=== PATIENT | male | born 1965 | race Caucasian/White ===

== ENCOUNTER 2021-03-17 11:59 | Emergency (ER) | payer BC, SELFPAY ==
[2021-03-17 12:56] LABS: Absolute Lymphocytes (CBC) 0.5 K/uL (0.7-4.9); Basophils % 0.2 % (0-1.3); Hematocrit 42.7 % (39.6-49.0); Lymphocytes % 4.9 % (15.3-44.8); MPV 8.8 fL (7.6-11.3); RBC Red Blood Cell Count 4.98 M/uL (4.33-5.43)
[2021-03-17 13:15] LABS: Protime INR 1.52
[2021-03-17] MEDS ORDERED: dexAMETHasone 10 MG/ML VIAL ONE (13:22)
[2021-03-17] MEDS ORDERED: ACETAMINOPHEN 500 MG TAB ONE (13:22)
--- NOTE | 2021-03-17 13:33 | RAD REPORT ---
EXAM DESCRIPTION: RAD - Chest Single View - 03/17/2021 1:27 pm CLINICAL HISTORY: SOB Chest pain. COMPARISON: No comparisons FINDINGS: Portable technique limits examination quality. The lungs are grossly clear. The heart is normal in size. No displaced fractures. IMPRESSION: No acute intrathoracic process suspected.
[2021-03-17 13:36] LABS: Blood Morphology Comment NOT SEEN (NOT SEEN); Platelet Estimate ADEQ
[2021-03-17 13:58] LABS: Albumin 3.5 g/dL (3.4-5.0); Bilirubin Direct 0.2 mg/dL (0-0.2); Bilirubin Total 0.6 mg/dL (0.2-1.0); Ferritin 174.7 ng/mL (26-388); Potassium 3.3 mmol/L (3.5-5.1); Protein, Total 7.5 g/dL (6.4-8.2); Troponin (Emerg Dept Use Only) 0.02 ng/mL (0.0-0.045)
--- NOTE | 2021-03-17 14:08 | RAD REPORT ---
EXAM DESCRIPTION: CT - Chest For Pe Angio - 03/17/2021 1:57 pm CLINICAL HISTORY: Chest pain. elevated d-dimer COMPARISON: No comparisons TECHNIQUE: CT angiogram of the pulmonary arteries was performed with MIP. All CT scans are performed using dose optimization technique as appropriate and may include automated exposure control or mA/KV adjustment according to patient size. FINDINGS: No evidence of pulmonary thromboembolism. No acute aortic finding demonstrated. Bilateral interstitial lung opacities are present suspicious for viral infection or bronchitis. No significant pericardial or pleural fluid. No concerning bony finding. IMPRESSION: No evidence of pulmonary thromboembolism. Mild bilateral interstitial lung opacities suspicious for viral infection or bronchitis.
--- NOTE | 2021-03-17 15:09 | ER ---
Nurse's Notes [facility] Name: Christopher Perez III Age: 56 yrs Sex: Male : 1965 Arrival Date: 03/17/2021 Time: 12:04 Bed 30 Private MD: Diagnosis: Coronavirus infection, unspecified Presentation: 03/17 12:07 Chief complaint: Patient states: fever Tmax 103.1, sinus infection/pressure, nose sv "blue" started 03/09/21. Coronavirus screen: Client denies travel out of the [place] in the last 14 days. Client presents with at least one sign or symptom that may indicate coronavirus-19. Standard/surgical mask placed on the client. Provider contacted for isolation considerations. Ebola Screen: No symptoms or risks identified at this time. Risk Assessment: Do you want to hurt yourself or someone else? Patient reports no desire to harm self or others. Onset of symptoms was March 09, 2021. Care prior to arrival: Medication(s) given: Tylenol, taken 1.5 hours ago. 12:07 Method Of Arrival: Wheelchair sv 12:07 Acuity: ANIVAL 2 sv 12:09 Initial Sepsis Screen: Does the patient meet any 2 criteria? No. Patient's initial sv sepsis screen is negative. Does the patient have a suspected source of infection? No. Patient's initial sepsis screen is negative. Historical: - Allergies: 12:09 Codeine; sv 12:09 hydrocodone; sv - PMHx: 12:09 None; sv - PSHx: 12:09 Knee surgery; Toe amputation; wrist; left eye; Hernia repair; sv - Immunization history:: Adult Immunizations up to date. - Social history:: Smoking status: Patient denies any tobacco usage or history of. Screenin:15 Abuse screen: Denies threats or abuse. Nutritional screening: No deficits noted. kg Tuberculosis screening: No symptoms or risk factors identified. Fall Risk None identified. No fall in past 12 months (0 pts). No secondary diagnosis (0 pts). IV access (20 points). Ambulatory Aid- None/Bed Rest/Nurse Assist (0 pts). Gait- Weak (10 pts.). Mental Status- Oriented to own ability (0 pts). Total Taylor Fall Scale indicates No Risk (0-24 pts). Assessment: 13:12 General: Appears in no apparent distress. Behavior is calm, cooperative, appropriate kg for age, quiet. Pain: Complains of pain in back and abdomen Pain radiates to head, neck, chest, abdomen, pelvis, right arm, right hand, left arm, left hand, right leg, right foot, left leg, left foot, back of head, back of neck, back of left arm, back of right arm, posterior chest, buttocks, back of left leg, back of right leg, left heel, right heel and back Generalized pain Pain currently is 4 out of 10 on a pain scale. at worst was 6 out of 10 on a pain scale. level that patient reports is acceptable is 3 out of 10 on a pain scale. Neuro: No deficits noted. Level of Consciousness is awake, alert, obeys commands, Oriented to person, place, time, situation. Cardiovascular: No deficits noted. Heart tones S1 S2 Capillary refill is brisk Patient's skin is warm and dry. dusky color skin. Respiratory: No deficits noted. Reports shortness of breath at rest on exertion Airway is patent Respiratory effort is even, Breath sounds are diminished bilaterally. GI: No deficits noted. : No deficits noted. EENT: No deficits noted. Derm: No deficits noted. Derm: Skin is dusky, Skin temperature is warm. Musculoskeletal:. Vital Signs: 12:09 BP 110 / 69; Pulse 108; Resp 20; Temp 100.7(O); Pulse Ox 100% on R/A; Weight 136.08 kg; sv Height 6 ft. 0 in. (182.88 cm); 13:05 BP 97 / 61 LA Supine (auto/lg); Pulse 90; Resp 18; Pulse Ox 95% on R/A; jp3 13:30 BP 97 / 61; Pulse 73; Resp 20; Pulse Ox 96% on R/A; Pain 4/10; kg 14:30 BP 107 / 65; Pulse 72; Resp 16; Temp 98.6(O); Pulse Ox 98% on R/A; kg 15:31 BP 103 / 50; Pulse 61; Resp 16; Pulse Ox 99% on R/A; kg 12:09 Body Mass Index 40.69 (136.08 kg, 182.88 cm) sv ED Course: 12:04 Patient arrived in ED. ds1 12:08 Triage completed. sv 12:09 Arm band placed on. sv 12:18 Manny Hylton PA is PHCP. jmm 12:18 Gian Caldwell MD is Attending Physician. jmm 12:45 Initial lab(s) drawn, by me, sent to lab. EKG done, by ED staff, reviewed by Manny CALLOWAY COVID swab sent to lab. Inserted saline lock: 20 gauge in right forearm, using aseptic technique. Blood collected. Patient maintains SpO2 saturation greater than 95% on room air. 12:58 Raegan Marquez is Primary Nurse. kg 13:05 Bed in low position. Call light in reach. Verbal reassurance given. air sampling and monitoring on. jp3 Pulse ox on. NIBP on. 13:26 XRAY Chest (1 view) In Process Unspecified. EDMS 13:48 D-Dimer Sent. sv 13:48 Troponin (emerg Dept Use Only) Sent. sv 13:49 PT-INR Sent. sv 13:49 NT PRO-BNP Sent. sv 13:49 Magnesium Sent. sv 13:49 LFT's Sent. sv 13:49 CBC with Diff Sent. sv 13:49 Basic Metabolic Panel Sent. sv 13:57 CT Chest For PE Angio In Process Unspecified. EDMS 15:32 No provider procedures requiring assistance completed. IV discontinued, intact, kg bleeding controlled, No redness/swelling at site. Pressure dressing applied. Administered Medications: 13:11 Drug: Decadron - Dexamethasone 10 mg Route: IVP; Site: right forearm; kg 15:12 Follow up: Response: No adverse reaction; Marked relief of symptoms kg 13:11 Drug: Tylenol 1000 mg Route: PO; kg 15:12 Follow up: Response: No adverse reaction; Marked relief of symptoms; Temperature is kg decreased Outcome: 15:08 Discharge ordered by . jmm 15:33 Discharged to home ambulatory. kg 15:33 Condition: good 15:33 Discharge instructions given to patient, family, Instructed on discharge instructions, follow up and referral plans. Demonstrated understanding of instructions, follow-up care, medications, Prescriptions given X 3. 15:44 Patient left the ED. kg Signatures: Dispatcher [employer] EDMS Marichuy Miller RN RN Manny Hylton PA PA Brenda Maurice ds1 Mal Monk jp3 Raegan Marquez kg Corrections: (The following items were deleted from the chart) 12:12 12:07 Acuity: ANIVAL 3 sv sv 12:12 12:09 Pulse 108bpm; Resp 20bpm; Pulse Ox 100% RA; Temp 100.7F Oral; 136.08 kg; Height 6 sv ft. 0 in.; BMI: 40.6; sv 14:54 14:30 BP 107 / 65; Pulse 72bpm; Resp 16bpm; Pulse Ox 98% RA; kg kg
--- NOTE | 2021-03-17 15:09 | EDPHYS ---
Physician Documentation [facility] Name: Christopher Perez III Age: 56 yrs Sex: Male : 1965 Arrival Date: 03/17/2021 Time: 12:04 Bed 30 Private MD: ED Physician Gian Caldwell HPI: 03/17 12:18 This 56 yrs old Male presents to ER via Wheelchair with complaints of Covid + jmm Fever Chills. 12:18 The patient or guardian reports cough. Onset: The symptoms/episode began/occurred jmm gradually, 8 day(s) ago. Modifying factors: The symptoms are alleviated by nothing. the symptoms are aggravated by nothing. Associated signs and symptoms: Pertinent positives: congestion, fever, shortness of breath. Modifying factors: The patient symptoms are alleviated by nothing, the patient symptoms are aggravated by nothing. Historical: - Allergies: 12:09 Codeine; sv 12:09 hydrocodone; sv - PMHx: 12:09 None; sv - PSHx: 12:09 Knee surgery; Toe amputation; wrist; left eye; Hernia repair; sv - Immunization history:: Adult Immunizations up to date. - Social history:: Smoking status: Patient denies any tobacco usage or history of. ROS: 12:18 Neck: Negative for injury, pain, and swelling, Cardiovascular: Negative for chest pain, jmm palpitations, and edema. 12:18 Constitutional: Positive for body aches, fever. 12:18 ENT: Positive for sinus congestion. 12:18 Respiratory: Positive for cough, shortness of breath. 12:18 All other systems are negative. Exam: 12:18 Head/Face: atraumatic. Eyes: EOMI, no conjunctival erythema appreciated ENT: Moist jmm Mucus Membranes Neck: Trachea midline, Supple Chest/axilla: Normal chest wall appearance and motion. Cardiovascular: Regular rate and rhythm. No edema appreciated Respiratory: Normal respirations, no respiratory distress appreciated Abdomen/GI: Non distended, soft Back: Normal ROM Skin: General appearance color normal MS/ Extremity: Moves all extremities, no obvious deformities appreciated, no edema noted to the lower extremities Neuro: Awake and alert, normal gait Psych: Behavior is normal, Mood is normal, Patient is cooperative and pleasant 12:18 Constitutional: The patient appears alert, awake, uncomfortable. 15:00 ECG was reviewed by the Attending Physician. [facility] Vital Signs: 12:09 BP 110 / 69; Pulse 108; Resp 20; Temp 100.7(O); Pulse Ox 100% on R/A; Weight 136.08 kg; sv Height 6 ft. 0 in. (182.88 cm); 13:05 BP 97 / 61 LA Supine (auto/lg); Pulse 90; Resp 18; Pulse Ox 95% on R/A; jp3 13:30 BP 97 / 61; Pulse 73; Resp 20; Pulse Ox 96% on R/A; Pain 4/10; kg 14:30 BP 107 / 65; Pulse 72; Resp 16; Temp 98.6(O); Pulse Ox 98% on R/A; kg 15:31 BP 103 / 50; Pulse 61; Resp 16; Pulse Ox 99% on R/A; kg 12:09 Body Mass Index 40.69 (136.08 kg, 182.88 cm) sv MDM: 12:18 Patient medically screened. ann marie 15:05 Data reviewed: vital signs, nurses notes. Counseling: I had a detailed discussion with [facility] the patient and/or guardian regarding: the historical points, exam findings, and any diagnostic results supporting the discharge/admit diagnosis, lab results, radiology results, the need for outpatient follow up, to return to the emergency department if symptoms worsen or persist or if there are any questions or concerns that arise at home. ED course: VS WNL in the ED. CTA negative of PE. Patient advised to follow up with pcp and otherwise given strict return precautions. patient understood and agrees with the plan of care. . 03/17 12:27 Order name: Basic Metabolic Panel [facility] 03/17 12:27 Order name: CBC with Diff [facility] 03/17 12:27 Order name: LFT's [facility] 03/17 12:27 Order name: Magnesium [facility] 03/17 12:27 Order name: NT PRO-BNP [facility] 03/17 12:27 Order name: PT-INR [facility] 03/17 12:27 Order name: Troponin (emerg Dept Use Only) [facility] 03/17 12:27 Order name: D-Dimer [facility] 03/17 12:27 Order name: CRP; Complete Time: 13:59 [facility] 03/17 12:27 Order name: Ferritin; Complete Time: 13:59 [facility] 03/17 12:28 Order name: Basic Metabolic Panel; Complete Time: 13:59 EDMS 03/17 12:28 Order name: CBC with Automated Diff; Complete Time: 13:44 EDMS 03/17 12:28 Order name: Liver (Hepatic) Function; Complete Time: 13:59 EDMS 07 12:27 Order name: XRAY Chest (1 view); Complete Time: 13:44 [facility] 03/17 12:27 Order name: EKG; Complete Time: 12:28 [facility] 03/17 12:27 Order name: Cardiac monitoring; Complete Time: 13:06 [facility] 03/17 12:27 Order name: EKG - Nurse/Tech; Complete Time: 13:06 [facility] 03/17 12:27 Order name: IV Saline Lock; Complete Time: 13:06 m 03/17 12:28 Order name: Magnesium; Complete Time: 13:59 EDMS 03/17 12:28 Order name: NT PRO-BNP; Complete Time: 13:59 EDMS 03/17 12:28 Order name: Protime (+INR); Complete Time: 13:28 EDMS 03/17 12:28 Order name: Troponin (Emerg Dept Use Only); Complete Time: 13:59 EDMS 03/17 12:28 Order name: D-Dimer; Complete Time: 13:28 EDMS 03/17 13:25 Order name: CT Chest For PE Angio; Complete Time: 14:12 m 03/17 13:36 Order name: Manual Differential; Complete Time: 13:44 EDMS 03/17 14:01 Order name: SARS-COV-2 RT PCR; Complete Time: 14:04 EDMS 03/17 12:27 Order name: Labs collected and sent; Complete Time: 13:07 [facility] 03/17 12:27 Order name: O2 Per Protocol; Complete Time: 13: [facility] 03/17 12:27 Order name: O2 Sat Monitoring; Complete Time: 13:07 jmm EC:00 Rate is 82 beats/min. Rhythm is regular. QRS [place] is Normal. CO interval is normal. QRS jmm interval is normal. QT interval is normal. No Q waves. T waves are Normal. No ST changes noted. Reviewed by me. Administered Medications: 13:11 Drug: Decadron - Dexamethasone 10 mg Route: IVP; Site: right forearm; kg 15:12 Follow up: Response: No adverse reaction; Marked relief of symptoms kg 13:11 Drug: Tylenol 1000 mg Route: PO; kg 15:12 Follow up: Response: No adverse reaction; Marked relief of symptoms; Temperature is kg decreased Disposition: 03/17/21 15:08 Discharged to Home. Impression: Coronavirus infection, unspecified. - Condition is Stable. - Discharge Instructions: COVID-19. - Prescriptions for ivermectin 3 mg Oral tablet - take 6 tablet by ORAL route as directed One dose today and the second dose on day 3; 12 tablet. Prednisone 20 mg Oral Tablet - take 3 tablet by ORAL route once daily for 5 days; 15 tablet. Albuterol Sulfate 90 mcg/actuation - inhale 1-2 puff by INHALATION route every 4-6 hours; 1 Inhaler. - Medication Reconciliation Form, Thank You Letter, Antibiotic Education, Prescription Opioid Use form. - Follow up: Private Physician; When: 2 - 3 days; Reason: Recheck today's complaints, Continuance of care, Re-evaluation by your physician. - Notes: Please take 1000 MG of N-Acetyl Cysteine (NAC) three times a day 1000 MG a day of vitamin C 10,000 IU of Vitamin D a day 50mg of Zinc daily Please take 400 mg of ibuprofen every 6 hours, 650 mg of Tylenol every 6 hours. Please alternate every 3 hours. Return to the ER if you develop increased shortness of breath, vomiting, or any other concerning symptoms. Addendum: 03/20/2021 09:27 Co-signature as Attending Physician, Gian Caldwell MD I agree with the assessment and c youngblood plan of care. Signatures: Dispatcher [employer] Marichuy Crawford RN RN sv Anderson, Corey, MD MD cha Mickail, Joel, PA PA jmm Graham, Kristen kg Corrections: (The following items were deleted from the chart) 03/17 12:55 12:28 CORONAVIRUS+MR.LAB.BRZ ordered. EDHI EDMS 13:35 13:02 CBC Smear Scan ordered. EDHI EDMS 15:44 15:08 03/17/2021 15:08 Discharged to Home. Impression: Coronavirus infection, kg unspecified. Condition is Stable. Forms are Medication Reconciliation Form, Thank You Letter, Antibiotic Education, Prescription Opioid Use. Follow up: Private Physician; When: 2 - 3 days; Reason: Recheck today's complaints, Continuance of care, Re-evaluation by your physician. lloyd
[2021-03-17 15:54] VITALS: TEMP 98.6
[2021-03-17 15:55] VITALS: BP 103/50; O2SAT 99
--- NOTE | 2021-03-18 10:38 | EKG ---
Test Date: 2021-03-17 Test Time: 12:57:35 Assistant Community Director: TOO MEASUREMENT RESULTS: Intervals: Rate: 82 OK: 170 QRSD: 98 QT: 372 QTc: 434 [place]: P: 54 OK: 170 QRS: 68 T: 34 INTERPRETIVE STATEMENTS: Normal sinus rhythm Normal ECG No previous ECG available for comparison Electronically Signed On 03-18-21 10:36:40 CDT by Eusebio Kerr
== END 2021-03-17 15:44 | disposition home or self-care (01) ==
LOC: ER 11:59
DX: U07.1 COVID-19 (principal); Z88.5 Allergy status to narcotic agent
CPT/HCPCS: 36415; 71045; 71275; 80048; 80076; 82728; 83735; 83880; 84484; 85025; 85379; 85610; 86140; 93005; 96374; 99285; J1100; Q9967; U0003